=== PATIENT | female | born 1940 | race Caucasian/White ===

== ENCOUNTER 2022-12-10 17:06 | Observation (INO) | payer MEDICARE, SELFPAY ==
[2022-12-10] VITALS (17 sets, daily range): BP systolic 140–168; BP diastolic 58–77; PULSE 73–98; RESP 14–20; TEMP 36.6; O2SAT 94–100
--- NOTE | ~2022-12-10 | XR_ITS ---
EXAMINATION: XR chest 1V portable DATE: 12/10/2022 23:40 INDICATION: Fall. TECHNIQUE: A single frontal view of the chest was obtained. COMPARISON: None. FINDINGS: There is mild atelectasis in left midlung zone. No pleural effusion or pneumothorax. Cardio megaly is noted. IMPRESSION: 1. Mild atelectasis in left midlung zone. 2. Cardiomegaly. Reviewed, dictated and finalized at location A. ILLMENT ASSOCIATE
--- NOTE | ~2022-12-10 | XR_ITS ---
EXAMINATION: XR hip LT min 2V INDICATION: Left hip pain TECHNIQUE: Two views of the left hip are obtained. COMPARISON: None available FINDINGS: There is mild osteoarthritis of the hip. Bone alignment is normal. There is no fracture. Th e soft tissues are unremarkable. IMPRESSION: 1. No acute osseous abnormality. Reviewed, dictated and finalized at location F. L PRESS CLERK
--- NOTE | ~2022-12-10 | CT_ITS ---
EXAMINATION: CT pelvis wo con DATE: 12/10/2022 21:09 INDICATION: Left hip pain TECHNIQUE: Computed tomography (CT) of the pelvis was performed without intravenous contrast. The dos e-length product (DLP) was 241.30 mGy-cm. Automated exposure control and iterative reconstruction jose miguel hnique were employed. COMPARISON: None FINDINGS: There is a nondisplaced, transverse fracture of the greater trochanter of the left femur. N o additional fracture is identified. There is mild osteoarthritis of the hips. The appendix is normal . Colonic diverticulosis is present without evidence of diverticulitis. There are no pathologically e nlarged pelvic lymph nodes. IMPRESSION: 1. Nondisplaced transverse fracture of the greater trochanter of the left femur. Reviewed, dictated and finalized at location F. R PLAN ADJUSTER IMPRESSION: 1. Nondisplaced transverse fracture of the greater trochanter of the left femur .
[2022-12-10] MEDS: HYDROcodone/acetaminophen (*CRX) 5-325 MG TABLET 1 TAB PO (21:39)
--- NOTE | 2022-12-10 22:11 | ED.GENADULT ---
HPI - General Adult General Chief complaint: Extremity Injury, Lower Stated complaint: fall - left hip pain Time Seen by Provider: 12/10/22 21:04 History of Present Illness HPI narrative: Patient 82-year-old female who presents the emergency department with chief complaint of left hip pain. Patient reports that she had a ground-level fall tripped and landed on her left hip. The patient reports she has pain with range of motion patient reports that she normally ambulates without any assist device. Patient denies head injury denies loss of consciousness. Related Data Allergies Allergy/AdvReac Type Severity Reaction Status Date / Time No Known Allergies Allergy Verified 12/10/22 21:35 Review of Systems Review of Systems: A 10 system review of systems was completed on the patient and is negative except for what is stated in the HPI. Nursing and ancillary documentation was reviewed. Exam Narrative: GENERAL: Well-appearing, well-nourished, and in no acute distress. HEAD: Normocephalic, atraumatic. EYES: PERRLA and EOMI. ENT: Nares clear, no rhinorrhea or epistaxis. Mucous membranes moist. NECK: Supple. CHEST: Clear to auscultation. No respiratory distress. HEART: Regular rate and rhythm. No murmur heard. Normal peripheral pulses. ABDOMEN: Soft, nontender, nondistended, normal active bowel sounds. EXTREMITIES: Normal range of motion. No edema. Tenderness to palpation of the left hip area SKIN: Warm, dry, no rash. NEURO: No focal deficits. Alert and oriented x3. PSYCH: Normal mood and affect. Course Vital Signs Vital signs: Vital Signs Temperature 36.6 C 12/10/22 17:09 Pulse Rate 98 12/10/22 17:09 Respiratory Rate 18 12/10/22 17:09 Blood Pressure 168/58 H 12/10/22 17:09 Pulse Oximetry 97 12/10/22 17:09 Oxygen Delivery Room Air 12/10/22 17:09 Temperature 36.6 C 12/10/22 17:09 Pulse Rate 73 12/10/22 22:45 Respiratory Rate 14 12/10/22 22:45 Blood Pressure 147/61 H 12/10/22 22:32 Pulse Oximetry 94 12/10/22 22:45 Oxygen Delivery Room Air 12/10/22 17:09 Medical Decision Making [facility] Narrative Medical decision making narrative: Differential diagnosis includes fracture, contusion. Plain film x-rays showed no evidence of fracture, CT scan of the pelvis showed evidence of a Nondisplaced transverse fracture of the greater trochanter of the left femur. The case was discussed with Dr. Medina of orthopedics who will be happy to consult and recommended admission to the hospitalist service. Vital Signs Vital Signs: Vital Signs Temperature 36.6 C 12/10/22 17:09 Pulse Rate 98 12/10/22 17:09 Respiratory Rate 18 12/10/22 17:09 Blood Pressure 168/58 H 12/10/22 17:09 Pulse Oximetry 97 12/10/22 17:09 Oxygen Delivery Room Air 12/10/22 17:09 Temperature 36.6 C 12/10/22 17:09 Pulse Rate 73 12/10/22 22:45 Respiratory Rate 14 12/10/22 22:45 Blood Pressure 147/61 H 12/10/22 22:32 Pulse Oximetry 94 12/10/22 22:45 Oxygen Delivery Room Air 12/10/22 17:09 Lab Data 12/10/22 22:11 12/10/22 22:11 Labs: Lab Results 12/10/22 12/10/22 12/10/22 Range/Units 22:11 22:11 22:11 WBC 17.2 H (4.5-10.0) K/mm3 RBC 4.45 (4.2-5.4) M/mm3 Hgb 13.2 (12.0-15.0) g/dL Hct 39.8 (37.0-47.0) % MCV 89.4 (80-100) fl MCH 29.7 (26-34) pg MCHC 33.2 (32-36) g/dl RDW 13.2 (11.5-14.5) % Plt Count 300 (150-375) k/mm3 MPV 9.2 (7.4-10.4) fl Immature Gran % (Auto) 0.4 (0-0.5) % Neut % (Auto) 70.6 (45.5-73.1) % Lymph % (Auto) 18.7 (18.3-44.2) % [place] % (Auto) 9.5 H (2.6-8.5) % Eos % (Auto) 0.2 (0-4.4) % Baso % (Auto) 0.6 (0.2-1.2) % Lymph # (Auto) 3.22 H (0.9-3.2) K/mm3 [place] # (Auto) 1.6 H (0.1-0.6) K/mm3 Eos # (Auto) 0.0 (0-0.3) K/mm3 Baso # (Auto) 0.1 (0.0-0.1) K/mm3 Abs Immat Gran (auto) 0.07 H (0.00-0.031) K/mm3 Absolute Neuts (auto) 12.1
[2022-12-10 22:16] LABS: Basophils Absolute Auto 0.1 K/mm3 (0.0-0.1); Basophils Percent Auto 0.6 % (0.2-1.2); Eosinophils Percent Auto 0.2 % (0-4.4); Hematocrit 39.8 % (37.0-47.0); Hemoglobin 13.2 g/dL (12.0-15.0); Immature Granulocyte Absolute 0.07 K/mm3 (0.00-0.031); Immature Granulocyte Percent A 0.4 % (0-0.5); Lymphocytes Absolute Auto 3.22 K/mm3 (0.9-3.2); Lymphocytes Percent Auto 18.7 % (18.3-44.2); Mean Corpuscular HGB Conc 33.2 g/dl (32-36); Mean Corpuscular Hemoglobin 29.7 pg (26-34); Mean Corpuscular Volume 89.4 fl (80-100); Mean Platelet Volume 9.2 fl (7.4-10.4); Monocytes Absolute Auto 1.6 K/mm3 (0.1-0.6); Monocytes Percent Auto 9.5 % (2.6-8.5); Neutrophils Absolute Auto 12.1 K/mm3 (1.3-6.7); Neutrophils Percent Auto 70.6 % (45.5-73.1); Platelet Count Result 300 k/mm3 (150-375); Red Blood Count 4.45 M/mm3 (4.2-5.4); Red Cell Distribution Width 13.2 % (11.5-14.5); White Blood Count 17.2 K/mm3 (4.5-10.0)
[2022-12-10] MEDS: SODIUM CHLORIDE 0.9% IV 1,000 ML 999 ML IV CONT (22:18)
[2022-12-10 22:32] LABS: Alanine Aminotransferase 21 U/L (6-35); Albumin Level 4.2 g/dL (3.5-5.1); Alkaline Phosphatase 86 U/L (38-126); Anion Gap 8 mmol/L (8-16); Aspartate Amino Transferase 30 U/L (14-36); Bilirubin,Total 0.6 mg/dL (0.2-1.3); Blood Urea Nitrogen 17 mg/dL (7-17); Calcium 8.8 mg/dL (8.4-10.2); Carbon Dioxide 25 mmol/L (22-30); Chloride 106 mmol/L (98-107); Estimated CRCL calculation 49 ml/min; Estimated Glomerular Filt Rate > 60; Glucose 106 mg/dL (65-110); INR 1.1; Potassium 3.8 mmol/L (3.4-5.0); Prothrombin Time 13.8 Seconds (11.1-14.7); Sodium 139 mmol/L (137-145)
[2022-12-11] VITALS (8 sets, daily range): BP systolic 110–139; BP diastolic 48–74; PULSE 65–86; RESP 14–19; TEMP 36.4–36.8; O2SAT 92–97; BMI 25.5
[2022-12-11] MEDS: MORPHINE SULFATE (*CRX) 4 MG/ML INJ IV PUSH ×3 (00:47→06:30)
[2022-12-11] MEDS: ONDANSETRON INJ 4 MG/2 ML VIAL IV PUSH (00:47)
[2022-12-11] MEDS: SODIUM CHLORIDE 0.9% IV 1,000 ML 100 ML IV CONT ×2 (01:58→11:59)
--- NOTE | 2022-12-11 02:02 | ADMGEN ---
This patient, Nella Gallagher, was admitted to Medical Room 241-01. Patient/family oriented to hospital policies and general routines including ID bracelet, bed and alarms, visiting hours, pain management, procedures, bathroom and other care routines, personal items, smoking policy, room service/diet, and visiting hours. Information on how to activate the Rapid Response Team has been discussed. Patient/Family are encouraged to report perceived risks to care and to ask questions if they do not understand what they are told or what they should do.
--- NOTE | 2022-12-11 04:32 | PM.IMHP ---
H&P: HPI History of Present Illness Date/Time: 12/11/22 04:32 Chief Complaint: Left hip pain after falling Narrative: 82-year-old female with past medical history of vitamin-D deficiency, osteoarthritis bilateral knees and osteoporosis who presented to the ER after tripping and falling resulting in hip pain. Patient reports that she was out in the driveway and tripped fell onto her left hip. She had immediate pain and was unable to get up. She arrived to the ER via EMS. Initial x-ray did not show fracture but CT of the pelvis did demonstrate a nondisplaced transverse fracture of the greater trochanter on the left. Patient reports that if she does not move her pain is an 8/10 in intensity in if she moves her pain is a 10/10 in intensity. In the ER a pure wick catheter was placed. The patient had not had any urine output but that turned out that the patient was actually holding her urine as she was afraid that the catheter would not absorb per urine. Nursing staff checked a bladder scan and his 700 mL. However patient did have avoid of approximately 500 mL and repeat scan was negative for any urinary retention. Patient does report chronic urinary frequency due to urge urinary incontinence but denies any recent increase in urinary frequency or urgency. She denies any dysuria or fevers. She did have some leukocytosis on admission labs but denies any fevers, chills or acute symptoms of illness. She denies any significant nausea. Morphine does help with her pain to some extent. She does not take any chronic pain medications at home. She does have osteoporosis at least since 2019 but does not take any calcium supplements. She does take vitamin-D supplements daily. She denies any history of heart failure, hypertension, palpitations, lightheadedness, syncope or any preceding symptoms prior to her fall. She denies having any history of lower extremity swelling but on exam patient did have 1+ pitting edema to the right lower extremity a trace pitting edema to left lower extremity. She states that she reports that her legs are normal for usual in thought that the lower extremity swelling could be due to her chronic [id number] pain from her osteoarthritis of her knees. She states that she needs to have knee replacements but has been too busy taking care of her who has neuropathy and mobility issues of his own in order to take the time to have her knee surgeries. She also was hoping to have the surgeries during the spring or summer instead of during the winter where she may be at increased risk of falling. She reports her last bowel movement was yesterday denies any hematochezia or melena. Review of Systems Review of Systems: 12 systems were reviewed with pertinent positives and negatives per HPI. Except as documented in the HPI, all other systems were reviewed and are negative. [facility] Past Medical History Medical History (Updated 12/11/22 @ 07:43 by Teresa Mancini DO) Osteoporosis Noted on DEXA scan 2019 Urge urinary incontinence Surgical History Surgical History (Updated 12/11/22 @ 07:34 by Teresa Mancini DO) Status post cataract extraction of both eyes with insertion of intraocular lens Family History Family History Other Unknown family medical history Social History Social History (Updated 12/11/22 @ 07:41 by Teresa Mancini DO) Social History: She lives with her of over 50 years. She reports that she is his primary caregiver. She still drives and is independent in all activities of daily living. Code status: Full code Surrogate decision maker: Yolanda Sánchez (sister in law) Smoking packs per day: 2 Smoking cigarettes per day: 40.0 Years smoked: 10 Smoking pack-years: 20.00 Smoking status: Former smoker Tobacco type: cigarettes Second hand tobacco smoke exposure: No Alcohol intake: never Substance use: never Lack
--- NOTE | 2022-12-11 05:03 | PC.NURSE ---
bladder scanned 721 mLs.
[2022-12-11 06:14] LABS: Appearance Urine Clear (Clear); Bilirubin Urine Negative (Negative); Blood Urine Negative (Negative); Color Urine Yellow (Yellow); Glucose Urine UA Negative (Negative); Ketones Urine Negative (Negative); Leukocyte Esterase Ur Negative LEU/UL (Negative); Nitrate Urine Negative (Negative); Protein Urine Negative (Negative); Specific Grav Ur 1.014 (1.001-1.035); Urobilinogen Urine 0.2 mg/dL (<2.0)
[2022-12-11 06:25] LABS: Add Urine Microscopic? NO
--- NOTE | 2022-12-11 06:35 | PC.NURSE ---
Dr. Mancini came up to the floor to review medical hx with pt. Pt mentioned she did take vitamins at home. Dr. Mancini asked for me to input vitamins into med list. When ask pt about vitamins she was unsure of dosages. Pt said she would try to get [id number] to make a list and send a copy.
[2022-12-11 08:41] LABS: Hematocrit 35.6 % (37.0-47.0); Hemoglobin 11.8 g/dL (12.0-15.0); Mean Corpuscular HGB Conc 33.1 g/dl (32-36); Mean Corpuscular Hemoglobin 29.6 pg (26-34); Mean Corpuscular Volume 89.4 fl (80-100); Mean Platelet Volume 9.4 fl (7.4-10.4); Platelet Count Result 273 k/mm3 (150-375); Red Blood Count 3.98 M/mm3 (4.2-5.4); Red Cell Distribution Width 13.3 % (11.5-14.5); White Blood Count 12.6 K/mm3 (4.5-10.0)
--- NOTE | 2022-12-11 10:45 | PM.IMPN ---
Progress Note: A&P Assessment and Plan (1) Closed fracture of greater trochanter of left femur: Code(s): S72.112A - Displaced fracture of greater trochanter of left femur, initial encounter for closed fracture Status: Acute Assessment and Plan: Pelvis CT: Nondisplaced transverse fracture of the greater trochanter of the left femur Secondary to fall Ortho consulted Pain medications changed to oxycodone PRN and caldolor x 1 Treat conservatively 50% weight bearing status Cardiac risk assessment appears to be minimal or low risk PT/OT ordered (2) Leukocytosis: Code(s): D72.829 - Elevated white blood cell count, unspecified Status: Acute Assessment and Plan: WBC 17.2, trending down currently 12.6 UA does not appear to be infectious Probably reactive Continue to trend labs (3) Osteoporosis: Code(s): M81.0 - Age-related osteoporosis without current pathological fracture Status: Acute Assessment and Plan: Calcium ordered Continue daily vitamin D supplementation Calcium per labs stable at 8.8 (4) Fall: Code(s): W19.XXXA - Unspecified fall, initial encounter Status: Acute Assessment and Plan: Tripped in the driveway PT/OT when appropriate Time Spent With Patient Time: 48 minutes Time with patient: Greater than 35 minutes Subjective Date/time seen: 12/11/22 1045 Interval history: 12/11/221044 Patient was lying in bed. Patient did appear to feel okay. She did complain about pain and stated that her pain is about a 9/10 with movement if she does not move it is really not as bad. Spoke with Ortho who stated they were going to start with the conservative management due to the fracture she has which the greater trochanter. Patient is 50% weight-bearing and pain medicines have been adjusted. Currently she denies any chest pain, shortness a breath, nausea, vomiting, diarrhea or constipation. PT and OT have been ordered for further evaluation. Can most likely discharge patient tomorrow if pain is better controlled. 12/11/22? 04:32 82-year-old female with past medical history of vitamin-D deficiency, osteoarthritis bilateral knees and osteoporosis who presented to the ER after tripping and falling resulting in hip pain.? Patient reports that she was out in the driveway and tripped fell onto her left hip.? She had immediate pain and was unable to get up.? She arrived to the ER via EMS.? Initial x-ray did not show fracture but CT of the pelvis did demonstrate a nondisplaced transverse fracture of the greater trochanter on the left.? Patient reports that if she does not move her pain is an 8/10 in intensity in if she moves her pain is a 10/10 in intensity.? In the ER a pure wick catheter was placed.? The patient had not had any urine output but that turned out that the patient was actually holding her urine as she was afraid that the catheter would not absorb per urine.? Nursing staff checked a bladder scan and his 700 mL.? However patient did have avoid of approximately 500 mL and repeat scan was negative for any urinary retention.? Patient does report chronic urinary frequency due to urge urinary incontinence but denies any recent increase in urinary frequency or urgency.? She denies any dysuria or fevers.? She did have some leukocytosis on admission labs but denies any fevers, chills or acute symptoms of illness.? She denies any significant nausea.? Morphine does help with her pain to some extent.? She does not take any chronic pain medications at home.? She does have osteoporosis at least since 2019 but does not take any calcium supplements.? She does take vitamin-D supplements daily.? She denies any history of heart failure, hypertension, palpitations, lightheadedness, syncope or any preceding symptoms prior to her fall.? She denies having any history of lower extremity swelling but on exam patient did
--- NOTE | 2022-12-11 12:30 | PM.CNOR ---
Assessment and Plan Assessment and plan (1) Closed fracture of greater trochanter of left femur: Code(s): S72.112A - Displaced fracture of greater trochanter of left femur, initial encounter for closed fracture Status: Acute Plan 82-year-old female with a nondisplaced transverse fracture of the left greater trochanter. Plan to treat conservatively with restricted weight-bearing of 50% on the left lower extremity using a walker for a minimum of 8 weeks. It would be a good idea for her to be seen by PT/OT therapy today and tomorrow in order to help her navigate around her house while maintaining this weight-bearing status. I also discussed adding Arthritis Strength Tylenol 3 times daily at discharge in hopes to cut down on her stronger pain medication usage. Plan follow-up in 2 weeks at our office with x-ray of the left hip. I provided our information on the discharge summary. Following. History of Present Illness HPI Consult date: 12/11/22 Consult reason: fracture ( left greater trochanter) Chief complaint: Nondisplaced fx of the greater trochanter of the L Narrative: 82-year-old female admitted after a fall onto her left hip yesterday 12/10/2022. She has pain primarily into the lateral buttock, hip and lateral thigh. There is also bruising associated with this. She is typically ambulatory without a cane or walker but has been unable to do so since the fall. X-rays taken in the ER were negative for any sign of fracture, however the CT showed a nondisplaced transverse fracture of the greater tuberosity of the left hip. She is currently taking morphine for pain relief. Review of Systems Constitutional: Constitutional: Reports as per HPI and Reports no additional constitutional complaints Musculoskeletal: Musculoskeletal: Reports arthralgias ( left hip) and Reports limited range of motion ( Left hip) [facility] Past Medical History Medical History Osteoporosis Noted on DEXA scan 2019 Urge urinary incontinence Surgical History Surgical History Status post cataract extraction of both eyes with insertion of intraocular lens Family History Family History Other Unknown family medical history Social History Social History Social History: She lives with her of over 50 years. She reports that she is his primary caregiver. She still drives and is independent in all activities of daily living. Code status: Full code Surrogate decision maker: Yolanda Sánchez (sister in law) Smoking packs per day: 2 Smoking cigarettes per day: 40.0 Years smoked: 10 Smoking pack-years: 20.00 Smoking status: Former smoker Tobacco type: cigarettes Second hand tobacco smoke exposure: No Alcohol intake: never Substance use: never Lack of Transportation: No Lack of Food: Never True Current Housing: I Have Housing Concerned About Future Housing: No Difficulty Paying Gas/Electric Bills: No Difficulty Paying for Meds: No Currently Unemployed: No Education: High School Diploma/GED Difficulty w/ Childcare or Family Care: No Spiritual care concerns: No Meds Home Medications and Allergies Home Medications Medication Instructions Recorded Confirmed Type cholecalciferol (vitamin D3) 50 2,000 unit PO DAILY 12/11/22 12/11/22 History mcg (2,000 unit) tablet (Vitamin D3) coQ10 (ubiquinol) 100 mg capsule 100 mg PO BID 12/11/22 12/11/22 History multivitamin 1 tablet PO DAILY 12/11/22 12/11/22 History omega-3 fatty acids 1 cap PO DAILY 12/11/22 12/11/22 History vitamin B complex 1 tablet PO DAILY 12/11/22 12/11/22 History Allergies Allergy/AdvReac Type Severity Reaction Status Date / Time No Known Allergies Allergy Verified 12/10/22 21:35 Vital
[2022-12-11] MEDS: IBUPROFEN IV 400 MG in SODIUM CHLORIDE 0.9% IV 100 ML 208 MG IVPB (13:36)
[2022-12-11] MEDS: CHOLECALCIFEROL 1,000 UNITS TABLET 2000 UNITS PO (17:10)
[2022-12-11] MEDS: oxyCODONE HCL (*CRX) 5 MG TAB IR PO (20:29)
[2022-12-12 03:32] VITALS: BP 123/46; PULSE 83; RESP 16; TEMP 37.2; O2SAT 93
[2022-12-12 05:09] LABS: Basophils Absolute Auto 0.1 K/mm3 (0.0-0.1); Basophils Percent Auto 0.9 % (0.2-1.2); Eosinophils Absolute Auto 0.2 K/mm3 (0-0.3); Eosinophils Percent Auto 1.2 % (0-4.4); Hematocrit 34.3 % (37.0-47.0); Hemoglobin 11.1 g/dL (12.0-15.0); Immature Granulocyte Absolute 0.04 K/mm3 (0.00-0.031); Immature Granulocyte Percent A 0.3 % (0-0.5); Mean Corpuscular HGB Conc 32.4 g/dl (32-36); Mean Corpuscular Hemoglobin 29.8 pg (26-34); Mean Platelet Volume 9.7 fl (7.4-10.4); Monocytes Absolute Auto 1.4 K/mm3 (0.1-0.6); Neutrophils Absolute Auto 8.6 K/mm3 (1.3-6.7); Neutrophils Percent Auto 69.6 % (45.5-73.1); Platelet Count Result 246 k/mm3 (150-375); Red Blood Count 3.73 M/mm3 (4.2-5.4); Red Cell Distribution Width 13.5 % (11.5-14.5); White Blood Count 12.3 K/mm3 (4.5-10.0)
[2022-12-12 05:15] LABS: Alanine Aminotransferase 46 U/L (6-35); Albumin Level 3.4 g/dL (3.5-5.1); Alkaline Phosphatase 73 U/L (38-126); Anion Gap 5 mmol/L (8-16); Aspartate Amino Transferase 40 U/L (14-36); Bilirubin,Total 0.7 mg/dL (0.2-1.3); Blood Urea Nitrogen 13 mg/dL (7-17); Calcium 8.1 mg/dL (8.4-10.2); Carbon Dioxide 23 mmol/L (22-30); Chloride 105 mmol/L (98-107); Estimated CRCL calculation 58 ml/min; Estimated Glomerular Filt Rate > 60; Glucose 107 mg/dL (65-110); Magnesium 1.9 mg/dL (1.6-2.3); Potassium 3.6 mmol/L (3.4-5.0); Sodium 133 mmol/L (137-145)
--- NOTE | 2022-12-12 07:00 | PM.IMPN ---
Progress Note: A&P Assessment and Plan (1) Closed fracture of greater trochanter of left femur: Code(s): S72.112A - Displaced fracture of greater trochanter of left femur, initial encounter for closed fracture Status: Acute Assessment and Plan: Pelvis CT: Nondisplaced transverse fracture of the greater trochanter of the left femur Secondary to fall Ortho consulted Pain medications changed to oxycodone PRN and caldolor x 1 Treat conservatively 50% weight bearing status Cardiac risk assessment appears to be minimal or low risk PT/OT ordered IS ordered Added some Toradol for better pain relief by reducing the swelling Lovenox for DVT has also been added (2) Leukocytosis: Code(s): D72.829 - Elevated white blood cell count, unspecified Status: Acute Assessment and Plan: WBC 17.2, trending down currently 12.3, and stable UA does not appear to be infectious Probably reactive Continue to trend labs (3) Osteoporosis: Code(s): M81.0 - Age-related osteoporosis without current pathological fracture Status: Acute Assessment and Plan: Calcium ordered Continue daily vitamin D supplementation Calcium per labs stable at 8.8 (4) Fall: Code(s): W19.XXXA - Unspecified fall, initial encounter Status: Acute Assessment and Plan: Tripped in the driveway PT/OT when appropriate Time Spent With Patient Time: 48 minutes Time with patient: Greater than 35 minutes Subjective Date/time seen: 12/12/22 0700 Interval history: 12/12/22 07 Patient is doing ok today. She is still having some pretty significant pain. Currently she stated that her pain is an 8/10. She stated that she really feels the pain when she stands. She is concerned about the pain and being at home. She is also worried about her . She will need home health which will be set up for her at discharge. If the pain is better, she should be able to discharge home tomorrow. She denies any chest pain, shortness of breath, nausea, vomiting, diarrhea, constipation. 12/11/22 1045 Patient was lying in bed. Patient did appear to feel okay. She did complain about pain and stated that her pain is about a 9/10 with movement if she does not move it is really not as bad. Spoke with Ortho who stated they were going to start with the conservative management due to the fracture she has which the greater trochanter. Patient is 50% weight-bearing and pain medicines have been adjusted. Currently she denies any chest pain, shortness a breath, nausea, vomiting, diarrhea or constipation. PT and OT have been ordered for further evaluation. Can most likely discharge patient tomorrow if pain is better controlled. 12/11/22? 04:32 82-year-old female with past medical history of vitamin-D deficiency, osteoarthritis bilateral knees and osteoporosis who presented to the ER after tripping and falling resulting in hip pain.? Patient reports that she was out in the driveway and tripped fell onto her left hip.? She had immediate pain and was unable to get up.? She arrived to the ER via EMS.? Initial x-ray did not show fracture but CT of the pelvis did demonstrate a nondisplaced transverse fracture of the greater trochanter on the left.? Patient reports that if she does not move her pain is an 8/10 in intensity in if she moves her pain is a 10/10 in intensity.? In the ER a pure wick catheter was placed.? The patient had not had any urine output but that turned out that the patient was actually holding her urine as she was afraid that the catheter would not absorb per urine.? Nursing staff checked a bladder scan and his 700 mL.? However patient did have avoid of approximately 500 mL and repeat scan was negative for any urinary retention.? Patient does report chronic urinary frequency due to urge urinary incontinence but denies any recent increase in urinary jonathan
[2022-12-12 09:18] VITALS: O2SAT 92
[2022-12-12] MEDS: KETOROLAC 15 MG/ML VIAL (*BKC) IV PUSH ×2 (09:21→20:34)
[2022-12-12] MEDS: ENOXAPARIN 40 MG/0.4 ML SYRINGE SUB-Q (09:21)
[2022-12-12 09:22] VITALS: RESP 16; O2SAT 94
[2022-12-12 13:26] VITALS: BP 122/41; PULSE 71; RESP 16; TEMP 36.7; O2SAT 96
[2022-12-12] MEDS: CHOLECALCIFEROL 1,000 UNITS TABLET 2000 UNITS PO (17:09)
[2022-12-12 21:55] VITALS: BP 130/42; PULSE 91; RESP 16; TEMP 37.1; O2SAT 93
[2022-12-13 05:22] LABS: Basophils Absolute Auto 0.1 K/mm3 (0.0-0.1); Basophils Percent Auto 1.1 % (0.2-1.2); Eosinophils Absolute Auto 0.3 K/mm3 (0-0.3); Eosinophils Percent Auto 2.6 % (0-4.4); Hematocrit 33.1 % (37.0-47.0); Hemoglobin 10.9 g/dL (12.0-15.0); Immature Granulocyte Absolute 0.04 K/mm3 (0.00-0.031); Immature Granulocyte Percent A 0.4 % (0-0.5); Lymphocytes Absolute Auto 3.03 K/mm3 (0.9-3.2); Lymphocytes Percent Auto 26.6 % (18.3-44.2); Mean Corpuscular HGB Conc 32.9 g/dl (32-36); Mean Corpuscular Hemoglobin 29.3 pg (26-34); Mean Platelet Volume 9.9 fl (7.4-10.4); Monocytes Absolute Auto 1.6 K/mm3 (0.1-0.6); Monocytes Percent Auto 13.7 % (2.6-8.5); Neutrophils Absolute Auto 6.4 K/mm3 (1.3-6.7); Neutrophils Percent Auto 55.6 % (45.5-73.1); Platelet Count Result 245 k/mm3 (150-375); Red Blood Count 3.72 M/mm3 (4.2-5.4); Red Cell Distribution Width 13.2 % (11.5-14.5); White Blood Count 11.4 K/mm3 (4.5-10.0)
[2022-12-13 05:30] LABS: Alanine Aminotransferase 37 U/L (6-35); Albumin Level 3.1 g/dL (3.5-5.1); Alkaline Phosphatase 73 U/L (38-126); Anion Gap 3 mmol/L (8-16); Aspartate Amino Transferase 33 U/L (14-36); Bilirubin,Total 0.6 mg/dL (0.2-1.3); Blood Urea Nitrogen 12 mg/dL (7-17); Calcium 8.1 mg/dL (8.4-10.2); Carbon Dioxide 26 mmol/L (22-30); Chloride 107 mmol/L (98-107); Estimated CRCL calculation 58 ml/min; Estimated Glomerular Filt Rate > 60; Glucose 106 mg/dL (65-110); Potassium 3.7 mmol/L (3.4-5.0); Sodium 136 mmol/L (137-145)
[2022-12-13 05:51] VITALS: BP 129/48; PULSE 75; RESP 18; TEMP 36.4; O2SAT 96
[2022-12-13 08:11] VITALS: RESP 18; O2SAT 96
[2022-12-13] MEDS: ENOXAPARIN 40 MG/0.4 ML SYRINGE SUB-Q (08:11)
--- NOTE | 2022-12-13 13:12 | PM.DS ---
DS: Admitting Diagnosis Discharge Date 12/13/2022 Admitting Diagnosis Left greater trochanter fracture DS: Discharge Diagnosis Discharge Diagnosis (1) Closed fracture of greater trochanter of left femur: Code(s): S72.112A - Displaced fracture of greater trochanter of left femur, initial encounter for closed fracture Status: Acute Assessment and Plan: Patient presented with left pain after suffering a mechanical fall. Pelvic CT showed nondisplaced transverse fracture of the greater trochanter of the left femur. She was seen in consultation by Orthopedic surgery and conservative management was recommended. Patient will continue with 50% weight-bearing status with a walker for a minimum of 8 weeks. She will follow-up with orthopedic surgery in 2 weeks. Supportive care was provided including analgesics. she participated in PT/ OT during admission and did well with this. Home healthcare was arranged. (2) Leukocytosis: Code(s): D72.829 - Elevated white blood cell count, unspecified Status: Acute Assessment and Plan: Patient noted to have leukocytosis on admission up to 17.2. Suspect this was reactive secondary to fall/ trauma. No evidence of underlying infectious process. WBC trended down and was near normal at 11.4 at time of discharge (3) Osteoporosis: Code(s): M81.0 - Age-related osteoporosis without current pathological fracture Status: Acute Assessment and Plan: Continue vitamin-D supplement. Calcium levels stable. Follow-up with PCP for continued bone density monitoring (4) Fall: Code(s): W19.XXXA - Unspecified fall, initial encounter Status: Acute Assessment and Plan: patient suffered a mechanical fall. Tripped in the driveway. Did not hit her head or lose consciousness. Fall precautions implemented DS: Summary Hospital Course Hospital Course: Date of admission: 12/10/2022 Date of discharge: 12/13/2022 Nella Gallagher is an 82-year-old female with history of osteoporosis and urinary incontinence who presented to the emergency department on 12/10/2022 after suffering a mechanical, ground level fall at home in her driveway. Patient landed on her left hip and complained of left hip pain. On presentation to the ED, vital signs are stable, she was afebrile, white blood cell count 17.2, additional laboratory workup unremarkable, hip x-ray unremarkable, pelvis CT with nondisplaced transverse fracture of the greater trochanter of the left femur. She was admitted to the hospitalist service for further evaluation and management was seen in consultation by Orthopedic surgery. Please see above for further details. Patient was evaluated by Orthopedic surgery and opted for conservative management. She will continue partial weight-bearing with a walker for 8 weeks. She will follow-up with orthopedic surgery in 2 weeks as an outpatient. Supportive care provided and patient will continue with analgesics as needed. She participated in PT/OT during admission. Home health services were arranged for continued therapy. Patient was feeling back to her usual state of health and felt comfortable with plans for return home. Discussed worrisome signs and symptoms for which to return and she was educated on her medications. She was discharged in hemodynamically stable condition on 12/13/2022. Time Spent with Patient Time attestation: Total time spent providing and/or coordinating discharge services: 45 minutes Exam Narrative: General: Well-nourished appearing 82-year-old female, sitting up in bed, comfortable, NARD Neuro: awake, alert and oriented x4, speech clear, no focal neuro deficits noted HEENMT: normocephalic, atraumatic, EOMI, sclerae anicteric, moist oral mucosa Respiratory: clear to auscultation bilaterally, nonlabored breathing Cardio: regular rate, regular rhythm with S1-S2 Abdomen: nondistended, normoactive bowel sounds, soft, nonte
[2022-12-13] MEDS: oxyCODONE HCL (*CRX) 5 MG TAB IR PO (14:01)
== END 2022-12-13 14:05 | disposition home health service (06) ==
LOC: ANHED 23:54 → ANH2MED 12-11 01:01
PROVIDERS: Nurse Practitioner; Admitting Provider Internal Medicine; Emergency Provider Emergency Medicine; PCP Physician Assistant; Visit Provider Physician Assistant
DX: S72.112A Displaced fracture of greater trochanter of left femur, initial encounter for closed fracture (principal); W01.0XXA Fall on same level from slipping, tripping and stumbling without subsequent striking against object, initial encounter; D72.829 Elevated white blood cell count, unspecified; K57.90 Diverticulosis of intestine, part unspecified, without perforation or abscess without bleeding; E55.9 Vitamin D deficiency, unspecified; M17.0 Bilateral primary osteoarthritis of knee; J98.11 Atelectasis; M81.0 Age-related osteoporosis without current pathological fracture; I51.7 Cardiomegaly; Z96.0 Presence of urogenital implants; N39.41 Urge incontinence; Z87.891 Personal history of nicotine dependence; Z79.899 Other long term (current) drug therapy
CPT/HCPCS: 36415; 71045; 72192; 73502; 80053; 81003; 83735; 85025; 85027; 85610; 85730; 96360; 96361; 96365; 96372; 96375; 96376; 97110; 97116; 97161; 97165; 97530; 97535; 99285; A9270; G0378; J1650; J1741; J1885; J2270; J2405; J7030

== ENCOUNTER 2024-06-30 09:18 | Outpatient (CLI) | payer MEDICARE, SELFPAY ==
--- NOTE | ~2024-06-30 | DEXA_ITS ---
Bone Density Report Name: LUCY YOUNG Age: 84 Sex: Female Ethnicity: White Date of : 1940 Indication: postmenopausal osteoporosis; monitoring treatment; height loss; prior fracture; Referring Provider: JOSEALLAN Study: Bone densitometry was performed. Exam Date: June 30, 2024 Accession number: [id number] Bone Density: Region BMD T-score Z-score Classification AP Spine(L1-L4) 0.633 -3.8 -0.9 Osteoporosis Femoral Neck (Left) 0.491 -3.2 -0.8 Osteoporosis Total Hip (Left) 0.561 -3.1 -0.9 Osteoporosis Femoral Neck (Right) 0.463 -3.5 -1.0 Osteoporosis Total Hip (Right) 0.511 -3.5 -1.3 Osteoporosis Total Hip Mean 0.536 -3.3 -1.1 Osteoporosis World Health Organization criteria for BMD impression classify patients as: Normal (T-score at or above -1.0), Osteopenia (T-score between -1.0 and -2.5), or Osteoporosis (T-score at or below -2.5). 10-year Fracture Risk: FRAX not reported because: Some T-score for Spine Total or Hip Total or Femoral Neck at or below -2.5 Prior hip or vertebral fracture Treated for osteoporosis Previous Exams: Region Exam Age BMD T-score BMD Change BMD Change Date g/cm2 vs Baseline vs Previous Total Hip(Left) 06/30/2024 84 0.561 -3.1 -0.041 (-6.9%) -0.041 (-6.9%) 06/04/2019 79 0.602 -2.8 Total Hip(Right) 06/30/2024 84 0.511 -3.5 -0.080 (-13.5% -0.080 (-13.5% 06/04/2019 79 0.591 -2.9 *Denotes significance at 95% confidence level, LSC for Total Hip = 0.027 g/cm2 # Denotes dissimilar scan types or analysis methods Clinical Information Provided by Patient: Have had a previous hip or vertebral fracture Has had a low trauma fracture Is being treated for osteoporosis Has used the following medications: Vitamin D, Calcium Patient maximum height was 62 Menopause Age: 41 No regular weight bearing exercise Drinks caffeinated beverages Onset of menses at age 10 Number of children 1 Impression: The patient has established osteoporosis, based on the Total Spine T-score and the existence of a prior fracture. The patient has risk factors, including: previous fracture. The BMD for the Total Hip(Right) decreased, changing by -13.5% since the last DXA exam. Discussion: SIGNIFICANT BONE LOSS OBSERVED. Adherence to therapy (including calcium and vitamin D intake) should be assessed. If compliance is not a factor, review management and exclusion of secondary causes of bone loss. It is important to ask patients whether they are taking their
== END 2024-06-30 09:19 | disposition home or self-care (01) ==
LOC: ANHIMG 09:23
PROVIDERS: PCP Physician Assistant; Visit Provider Physician Assistant
DX: M81.0 Age-related osteoporosis without current pathological fracture (principal); Z78.0 Asymptomatic menopausal state
CPT/HCPCS: 77080